=== PATIENT | female | born 1950 | race Caucasian/White ===

== ENCOUNTER → 2016-12-24 | Outpatient (CLI) | payer BC, MEDICARE ==
--- NOTE | 2016-12-25 16:37 | RAD ---
EXAM DESCRIPTION: Thoracic Spine,AP Lateral CLINICAL HISTORY: 66 years Female, DORSALGIA COMPARISON: None. FINDINGS: Modest osteopenia and mild anterior degenerative lipping and kyphosis of the dorsal spine is apparent but without focal compression deformity or destructive process. Mild S-shaped scoliosis convex to the right in the upper thoracic region and to the left in the lower thoracic region is present. The aorta is tortuous but no paraspinous mass or pulmonary abnormality on the visualized portions of the lungs noted. IMPRESSION: Necrosis with mild osteopenia and anterior degenerative lipping and minimal scoliosis of the thoracic spine without acute injury Electronically signed by: Johnny Jarrett MD 12/25/2016 4:35 PM CDT
--- NOTE | 2016-12-25 16:38 | RAD ---
EXAM DESCRIPTION: Cervical Spine,3 Views CLINICAL HISTORY: 66 years Female, DORSALGIA COMPARISON: None. FINDINGS: Tilting of the cervical spine with moderate facet arthropathy is evident on the AP view with the head tilted towards the left. The odontoid is intact. Lateral view demonstrates a cervical spine two good advantage only to the upper C6 level with advanced degenerative disc disease at this level. No fracture or malalignment is seen. IMPRESSION: Mild tilting of the spine towards the left with degenerative disc disease most prominent at C5-6 and moderate bilateral facet arthropathy noted on the AP view. Electronically signed by: Johnny Jarrett MD 12/25/2016 4:37 PM CDT
--- NOTE | 2016-12-25 16:39 | RAD ---
EXAM DESCRIPTION: Lumbar Spine 3 Views CLINICAL HISTORY: DORSALGIA COMPARISON: None Available. TECHNIQUE: AP/lateral/coned-down lateral/both obliques FINDINGS: Dextroscoliosis of the spine centered at the L2-3 level is present with multilevel advanced degenerative disc narrowing with relative sparing of the L2-3 level. Mild anterior degenerative spurs are present and marked facet sclerosis in the lower lumbar spine and lumbosacral junction noted. Sclerotic degenerative changes in the lower thoracic spine at the T11-12 level anteriorly are also noted. No compression deformities noted. IMPRESSION: Advanced degenerative disc disease and facet degenerative arthropathy with mild dextroscoliosis of the upper lumbar spine Electronically signed by: Johnny Jarrett MD 12/25/2016 4:38 PM CDT
== END | disposition home or self-care (01) ==
LOC: RAD 17:17
PROVIDERS: ATTEND Internal Medicine
DX: M54.9 Dorsalgia, unspecified (principal)

== ENCOUNTER → 2017-02-20 | Outpatient (CLI) | payer BC, MEDICARE | END | disposition home or self-care (01) | LOC: LAB.O 18:02 | PROVIDERS: ATTEND Nurse Practitioner Family | DX: E55.0 Rickets, active (principal); I10 Essential (primary) hypertension; E03.9 Hypothyroidism, unspecified; R73.9 Hyperglycemia, unspecified ==

== ENCOUNTER → 2017-08-21 | Outpatient (CLI) | payer BC, MEDICARE | LOC: LAB.O 14:50 | PROVIDERS: ATTEND Internal Medicine | DX: L40.50 Arthropathic psoriasis, unspecified (principal); I10 Essential (primary) hypertension; E03.9 Hypothyroidism, unspecified; R73.9 Hyperglycemia, unspecified; Z13.6 Encounter for screening for cardiovascular disorders ==

== ENCOUNTER → 2018-07-30 | Outpatient (CLI) | payer BC, MEDICARE | LOC: LAB.O 12:55 | PROVIDERS: ATTEND Internal Medicine | DX: E03.9 Hypothyroidism, unspecified (principal); I10 Essential (primary) hypertension; R73.9 Hyperglycemia, unspecified; M25.50 Pain in unspecified joint ==

== ENCOUNTER → 2018-09-07 | Outpatient (CLI) | payer BC, MEDICARE ==
--- NOTE | 2018-09-07 07:16 | RAD ---
EXAM DESCRIPTION: Hand,Left 3 Views CLINICAL HISTORY: 68 years Female, OTHER PSORIATIC ARTHROPATHY COMPARISON: None. FINDINGS: Three views of the left hand show no acute fracture or dislocation. There is subluxation of the first CMC joint with proximal migration of the first metacarpal. Joint space narrowing and productive change involves multiple interphalangeal joints, worse at the second and third DIP joints. Diffuse soft tissue swelling involves the second and, third and fifth fingers. MCP joints are relatively spared. No soft tissue calcification or bony demineralization. IMPRESSION: Advanced polyarticular arthritis as detailed above. Findings are consistent with provided history of psoriatic arthritis. Electronically signed by: Khang Perry MD 09/07/2018 7:13 AM CDT
--- NOTE | 2018-09-07 07:24 | RAD ---
EXAM: Hand,Right 3 Views CLINICAL HISTORY: OTHER PSORIATIC ARTHROPATHY COMPARISON STUDY: None TECHNICAL: AP, lateral and oblique x-rays of the right hand FINDINGS: There are significant osteoarthritic changes of the lateral carpal row. There is joint space loss and heterotopic calcifications. These images show fusion of the first metacarpal and trapezium. There are no visible fractures. There are severe degenerative changes of the proximal and distal interphalangeal joints. There are no identifiable erosions. IMPRESSION: 1. Severe degenerative changes of the interphalangeal joints and lateral carpal row. 2. Suspected fusion of the trapezium and first metacarpal. Electronically signed by: Travis Huston MD 09/07/2018 7:21 AM CDT
--- NOTE | 2018-09-07 07:25 | RAD ---
EXAM: Pelvis CLINICAL HISTORY: OTHER PSORIATIC ARTHROPATHY COMPARISON STUDY: None TECHNICAL: AP pelvis x-ray FINDINGS: The pelvic ring is intact. The sacroiliac joints are intact. Both hips are in alignment. There is no joint space loss of either hip. There are no significant degenerative changes. Vascular calcifications are noted. IMPRESSION: Negative adult pelvis. Electronically signed by: Travis Huston MD 09/07/2018 7:22 AM CDT
--- NOTE | 2018-09-07 07:27 | RAD ---
EXAM: Foot,Left 3 Views CLINICAL HISTORY: OTHER PSORIATIC ARTHROPATHY. TECHNIQUE: AP, lateral and oblique images. COMPARISON STUDY: None FINDINGS: Joint space loss, osteophytic changes and subchondral sclerosis is identified at the second through fourth distal interphalangeal joints and second proximal interphalangeal joint. 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 No fracture or dislocation identified. IMPRESSION: 1. Moderate to severe degenerative changes of the distal interphalangeal joints and second proximal interphalangeal joint. Electronically signed by: Travis Huston MD 09/07/2018 7:24 AM CDT
--- NOTE | 2018-09-07 07:29 | RAD ---
EXAM: Foot,Right 3 Views CLINICAL HISTORY: OTHER PSORIATIC ARTHROPATHY. TECHNIQUE: AP, lateral and oblique images of the right foot.. COMPARISON STUDY: None FINDINGS: There are mild to moderate degenerative changes of the distal interphalangeal joints and mild degenerative changes of the proximal interphalangeal joint. There are no erosions. No fracture or dislocation identified. IMPRESSION: Mild to moderate degenerative changes of the interphalangeal joints. Electronically signed by: Travis Huston MD 09/07/2018 7:26 AM CDT
== END ==
LOC: LAB.O 09-02 15:14
PROVIDERS: ATTEND Internal Medicine
DX: L40.59 Other psoriatic arthropathy (principal); L40.0 Psoriasis vulgaris; R79.89 Other specified abnormal findings of blood chemistry; M15.0 Primary generalized (osteo)arthritis; Z79.899 Other long term (current) drug therapy

== ENCOUNTER → 2019-03-18 | Outpatient (CLI) | payer BC, MEDICARE | LOC: LAB.O 16:46 | PROVIDERS: ATTEND Internal Medicine | DX: L40.59 Other psoriatic arthropathy (principal); L40.0 Psoriasis vulgaris; Z79.899 Other long term (current) drug therapy ==

== ENCOUNTER → 2019-04-06 | Outpatient (CLI) | payer BC, MEDICARE ==
--- NOTE | 2019-04-07 08:21 | RAD ---
EXAM DESCRIPTION: Femur,Right CLINICAL HISTORY: 69 years Female, HIP PAIN COMPARISON: None. FINDINGS: Enthesopathy is seen at the greater trochanter. Calcification along the surface of the proximal diaphysis of the right femur could be myositis ossificans or irregular periosteal new bone formation. No bone destruction to suggest neoplastic process. AP view shows advanced degenerative narrowing of the knee joint with sclerosis and lucency in the lateral femoral condyle. Degenerative spurring of the patella. The femur appears intact. Normal bony mineralization and trabecular pattern. No fracture or lytic lesion of the femur. Degenerative narrowing of the hip joint. IMPRESSION: Negative for fracture. Electronically signed by: Alec Ngo MD 04/07/2019 8:19 AM [facility]
--- NOTE | 2019-04-07 08:32 | RAD ---
2 radiographs right hip. One radiograph pelvis. Indication: HIP PAIN Comparison: None. Impression: No acute fracture of the right hip or pelvis identified. Evaluation for fracture is limited given the degree of osteopenia. If high clinical concern for acute fracture, correlation with MRI recommended given its greater sensitivity in the osteopenic patient. If the patient cannot tolerate MRI imaging or more urgent imaging is required, CT could be performed, however it is less sensitive in the osteopenic patient when compared to MRI. Mild bilateral hip osteoarthritis present. Mild pubic symphysis osteoarthritis. Lower lumbar disc disease. Prominent enthesophyte formation bilateral greater trochanters. Scattered vascular calcifications. Osteopenia. If this is a new finding, DEXA scan recommended as well as evaluation for possible osteoporosis treatment. Electronically signed by: Alexis Lechuga MD 04/07/2019 8:30 AM [facility]
--- NOTE | 2019-04-07 08:33 | RAD ---
3 radiographs lumbar spine Indication: LOW BACK PAIN Comparison: December 24, 2016 Impression: Vertebral body height maintained without acute fracture. Mild dextrocurvature upper lumbar spine and mild levocurvature lower lumbar spine. Trace retrolisthesis L2-L3 and L3-L4. Moderate to severe disc space height loss lower 3 lumbar disc space levels and [id number] height loss superior 2 levels. Pronounced facet arthrosis throughout the lumbar spine most pronounced at the lower 2 disc space levels. Atherosclerosis aorta. Osteopenia. If this is a new finding, DEXA scan recommended as well as evaluation for possible osteoporosis treatment. Electronically signed by: Alexis Lechuga MD 04/07/2019 8:31 AM [facility]
--- NOTE | 2019-04-07 08:33 | RAD ---
Study: 3 Views of the Right Foot. Indication: PSORIATIC ARTHROPATHY Comparison: None. Impression: No acute fracture or malalignment. Soft tissue swelling throughout the foot and ankle. Small accessory peroneum bone. Mild osteoarthritis first MTP joint as well as throughout the PIP and DIP joints of the foot. No osseous erosions identified. Electronically signed by: Alexis Lechuga MD 04/07/2019 8:32 AM [facility]
--- NOTE | 2019-04-07 08:34 | RAD ---
Study: 3 Views of the left foot. Indication: PSORIATIC ARTHROPATHY Comparison: None. Impression: No acute fracture or malalignment. Soft tissue swelling throughout the foot and ankle. Small accessory peroneum bone. 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 Mild osteoarthritis first MTP joint as well as throughout the PIP and DIP joints of the foot. No osseous erosions identified. Calcaneal spurring at the Achilles tendon insertion and plantar fascia origin. Electronically signed by: Alexis Lechuga MD 04/07/2019 8:32 AM [facility]
--- NOTE | 2019-04-07 08:42 | RAD ---
Frontal, lateral, and oblique views of the left hand. Indication:PSORIATIC ARTHROPATHY Comparison: None. Impression: Varying degrees of gullwing deformities noted throughout the PIP and DIP joints of the hand with changes most pronounced at the second, third, and fifth DIP joints and the third PIP joint. Pronounced joint space loss and osteophyte formation at these joints. This is favored to reflect erosive osteoarthritis, however this can be seen in the patient's reported history of psoriatic arthritis. No marginal osseous erosions identified. Mild joint space narrowing throughout the MCP joints of the hand. Prior resection of the trapezium bone has likely been performed. No acute fracture identified. Osteopenia. If this is a new finding, DEXA scan recommended as well as evaluation for possible osteoporosis treatment. Electronically signed by: Alexis Lechuga MD 04/07/2019 8:40 AM [facility]
--- NOTE | 2019-04-07 08:43 | RAD ---
Frontal, lateral, and oblique views of the right hand. Indication:PSORIATIC ARTHROPATHY Comparison: None. Impression: Varying degrees of gullwing deformities noted throughout the PIP and DIP joints of the hand with changes most pronounced at the second, third, and fifth DIP joints as well as the fourth PIP joint. Pronounced joint space loss and osteophyte formation at these joints. This is favored to reflect erosive osteoarthritis, however this can be seen in the patient's reported history of psoriatic arthritis. No marginal osseous erosions identified. Mild to moderate joint space narrowing throughout the MCP joints of the hand. Severe osteoarthritis of the first CMC joint with moderate to severe changes at the STT joint. No acute fracture identified. Mild soft tissue swelling throughout the hand and fingers. Osteopenia. If this is a new finding, DEXA scan recommended as well as evaluation for possible osteoporosis treatment. Electronically signed by: Alexis Lechuga MD 04/07/2019 8:41 AM [facility]
== END ==
LOC: RAD 16:11
PROVIDERS: ATTEND Internal Medicine
DX: L40.59 Other psoriatic arthropathy (principal); M85.89 Other specified disorders of bone density and structure, multiple sites; M51.36 Other intervertebral disc degeneration, lumbar region; M16.0 Bilateral primary osteoarthritis of hip; M76.9 Unspecified enthesopathy, lower limb, excluding foot; M43.16 Spondylolisthesis, lumbar region; M19.071 Primary osteoarthritis, right ankle and foot; M19.072 Primary osteoarthritis, left ankle and foot; M77.32 Calcaneal spur, left foot; M19.041 Primary osteoarthritis, right hand; M19.042 Primary osteoarthritis, left hand; I70.90 Unspecified atherosclerosis

== ENCOUNTER → 2019-07-12 | Outpatient (CLI) | payer BC, MEDICARE | LOC: LAB.O 07-09 16:25 | PROVIDERS: ATTEND Nurse Practitioner Family | DX: L40.59 Other psoriatic arthropathy (principal); L40.0 Psoriasis vulgaris; Z79.899 Other long term (current) drug therapy ==

== ENCOUNTER → 2020-01-05 | Outpatient (CLI) | payer BC, MEDICARE | LOC: LAB.O 15:02 | PROVIDERS: ATTEND Nurse Practitioner Family | DX: L40.59 Other psoriatic arthropathy (principal); L40.0 Psoriasis vulgaris; Z79.899 Other long term (current) drug therapy; R53.83 Other fatigue; E55.9 Vitamin D deficiency, unspecified; Z13.6 Encounter for screening for cardiovascular disorders ==

== ENCOUNTER → 2020-05-17 | Outpatient (CLI) | payer BC, MEDICARE | LOC: LAB.O 15:19 | PROVIDERS: ATTEND Internal Medicine | DX: L40.59 Other psoriatic arthropathy (principal); L40.0 Psoriasis vulgaris; Z79.899 Other long term (current) drug therapy; I10 Essential (primary) hypertension; E03.9 Hypothyroidism, unspecified; Z13.6 Encounter for screening for cardiovascular disorders ==